=== PATIENT | female | born 1935 ===

== ENCOUNTER 2017-08-27 07:16 | Day surgery (SDC) | payer MEDICARE ==
[2017-08-25 13:34] VITALS: BMI 25.2
[2017-08-27 07:56] LABS: BASO # 0.08 K/mm3 (0.0-2.0); BASO % 0.5 % (0.0-3.0); EOS # 0.4 (0.0-0.7); EOS % 2.9 % (1.5-5.0); GRAN # 10.47 (1.4-6.5); GRAN % 69.7 % (50.0-68.0); HEMOGLOBIN 13.8 g/dL (12.0-16.0); LYMPH # 2.9 (1.2-3.4); LYMPH % 19.5 % (22.0-35.0); MEAN CELL VOLUME 90.1 fl (80.0-105.0); MEAN CORPUSCULAR HEMOGLOBIN 30.3 pg (25.0-35.0); MEAN CORPUSCULAR HGB CONC 33.6 g/dl (31.0-37.0); MEAN PLATELET VOLUME 9.8 fl (7.0-11.0); MONO # 1.1 (0.1-0.6); MONO % 7.4 % (1.0-6.0); RBC 4.56 10^6/uL (3.5-6.1); RED CELL DISTRIBUTION WIDTH 13.4 % (11.5-14.5)
[2017-08-27 08:09] LABS: BLOOD UREA NITROGEN 20 mg/dL (7-21); CALCIUM 9.5 mg/dL (8.4-10.5); GFR AFRICAN-AMERICAN > 60; GFR NON-AFRICAN AMERICAN > 60; HDL CHOLESTEROL 59 mg/dL (29-60)
[2017-08-27 08:19] LABS: LDL CHOLESTEROL 91 mg/dL (0-129)
[2017-08-27 08:22] LABS: INR 1.11 (0.93-1.08); PARTIAL THROMBOPLASTIN TIME 25.3 Seconds (25.1-36.5); PROTHROMBIN TIME 12.8 SECONDS (9.4-12.5)
[2017-08-27] MEDS ORDERED: Lidocaine 2% Inj (20ml) ONE (08:52)
[2017-08-27] MEDS ORDERED: Midazolam 2 MG/2 ML VIAL ONE ×2 (08:53→09:09)
[2017-08-27] MEDS ORDERED: Iodixanol 320 MG/ML 200 ML BOTTLE IV ONE (08:53)
--- NOTE | 2017-08-27 09:38 | CARD ---
APPROVED REPORT EKG Measurement Heart [id number] GA 144P58 [id number] <Conclusion> Normal sinus rhythm Right bundle branch block Abnormal ECG
[2017-08-27] MEDS ORDERED: Eptifibatide 20 mg/10mL Inj IVP ONE (09:46)
[2017-08-27] MEDS ORDERED: Sodium Chloride 0.9% 1,000 ML IV SCH (10:30)
--- NOTE | 2017-08-27 11:18 | CARDCATH ---
PROCEDURE DATE: 08/27/2017 HISTORY: The patient is an 81-year-old woman who presents with chest pain. A stress test revealed ischemic areas. Because of this, a cardiac catheterization was recommended. The patient suffers from hypertension and hypercholesterolemia. She has been on chronic medications for recurrent chest pain. PROCEDURE: Left heart catheterization with coronary arteriography and left ventriculogram followed by PTCA and stent of the circumflex artery. The right femoral artery was cannulated with 6-Lib[place] sheath. There were no complications. I performed moderate sedation which included the presence of an independent trained observer that assisted in monitoring the patient's level of consciousness and physiologic status. After administration of Versed and fentanyl, my intra service time was 30 minutes. The findings on catheterization revealed right dominant circulation. The RCA revealed intimal irregularities without significant stenoses. The left main artery was unremarkable. The circumflex artery revealed an eccentric 80% stenoses in the mid portion. The LAD and diagonal vessels are free of significant disease. LV function was normal with an EF of 60%. The patient was started on intravenous Angiomax and gait and given two boluses of IV Integrilin. Under fluoroscopic guide, the guiding catheter was placed in the ostium of the left main artery. An 0.014 ATW wire was used to cross the critical lesion, a 3.5 x 8 mm drug-eluting stent was placed and deployed in the critical lesion at 14 atmospheres of pressure. Repeat coronary arteriography revealed a narrowing just distal to the stent, a second 8 mm x 3.5 drug-eluting stent was placed and deployed just distal to the first stent at 14 atmospheres of pressure. Repeat coronary arteriography revealed an excellent result with no residual stenosis and MANOJ III flow, 200 mcg are given in between the two stents without change in the anatomy. Repeat coronary arteriography revealed an excellent result with no residual stenosis and MANOJ III flow. The patient tolerated the procedure well. Angio-Seal was used to close the femoral artery site. In summary, the procedure was successful PTCA and stent of an 80% eccentric circumflex artery stenosis. Cardiac catheterization revealed single-vessel CAD with normal LV function. Given these findings, the patient will need to remain on Plavix for a year, aspirin indefinitely and undergo a strict cardiac risk reduction program. Clement Aguilar MD [facility] # [id number]
--- NOTE | 2017-08-27 12:29 | CARD ---
APPROVED REPORT EKG Measurement Heart [id number] MO 162P70 [id number] <Conclusion> Normal sinus rhythm Right bundle branch block Abnormal ECG
--- NOTE | 2017-08-27 15:43 | HP ---
STORY OF PRESENT ILLNESS: I am seeing her for Dr. Aguilar, called me to see her. He just finished a cardiac cath and stent placement. She is an 81-year-old female with past medical history of chest pain. She had a stress test which showed ischemic areas. She had a cardiac cath and stent placement. PAST MEDICAL HISTORY: Hypertension, high cholesterol, recurrent chest pain. She had a left heart catheterization with coronary arteriography and left ventriculogram, followed by PTCA and stent of the circumflex artery. Also, she is comfortable at this time, resting comfortably in bed. SOCIAL HISTORY: No smoking. No drinking. No drugs. ALLERGIES: BERRIES AND VITAMIN C. REVIEW OF SYSTEMS: She has chest pain, but no vision or hearing changes. No shortness of breath. No abdominal pain. No nausea,vomiting, constipation, diarrhea. No skin issues. No anxiety. No numbness or tingling. PHYSICAL EXAMINATION: VITAL SIGNS: She has a 97.3 temp, 95 down to 57 pulse, 147/61 blood pressure, 21 respiratory rate, had 98% O2 sat on room air. HEENT: Head: Atraumatic, normocephalic. Extraocular muscles intact. Throat is moist. NECK: Supple. HEART: Regular rate. LUNGS: Decreased breath sounds, but clear to auscultation. ABDOMEN: Soft, nontender. Positive bowel sounds. Mildly obese. EXTREMITIES: No edema. She is to lay flat right now. SKIN: It is hard to see all those skin, but what I can tell no rashes or ulcers. PSYCHIATRIC: Alert and oriented x3. LABORATORY DATA: She has 15,000 white count, 13.8 hemoglobin, 41.1 hematocrit with 300 platelets. INR is 1.11. Sodium 143, potassium 4.2, BUN 20, creatinine 0.8, GFR is greater than 60, sugar is 103, calcium is 9.5, triglyceride is 112, cholesterol is 139, HDL 59. IMPRESSION AND PLAN: She is going to be on Ecotrin, Lipitor, Plavix, IV fluids, Synthroid, Tylenol. We will check labs in the morning. Hoping the white count subsides. We will address that tomorrow morning. It could be stress related. History of chest pain, coronary artery disease, cardiac cath. She has a history of hypothyroid, high cholesterol and coronary artery disease. Mehrdad Figueroa DO [facility] # [id number]
[2017-08-28 05:47] VITALS: BP 123/56; RESP 18; TEMP 98.4; O2SAT 97
[2017-08-28 07:13] LABS: BASO # 0.06 K/mm3 (0.0-2.0); BASO % 0.5 % (0.0-3.0); EOS # 0.5 (0.0-0.7); EOS % 4.2 % (1.5-5.0); GRAN # 7.21 (1.4-6.5); LYMPH # 2.4 (1.2-3.4); LYMPH % 22.2 % (22.0-35.0); MEAN CELL VOLUME 89.1 fl (80.0-105.0); MEAN CORPUSCULAR HEMOGLOBIN 29.6 pg (25.0-35.0); MEAN CORPUSCULAR HGB CONC 33.2 g/dl (31.0-37.0); MEAN PLATELET VOLUME 9.9 fl (7.0-11.0); MONO # 0.8 (0.1-0.6); MONO % 7.1 % (1.0-6.0); RBC 4.05 10^6/uL (3.5-6.1); RED CELL DISTRIBUTION WIDTH 13.3 % (11.5-14.5); WHITE BLOOD COUNT 10.9 10^3/ul (4.5-11.0)
[2017-08-28 07:32] LABS: ALB/GLOB RATIO 1.2 (1.1-1.8); ALBUMIN 3.6 g/dL (3.0-4.8); ALT/SGPT 29 U/L (7-56); AST/SGOT 36 U/L (14-36); BLOOD UREA NITROGEN 15 mg/dL (7-21); CALCIUM 8.7 mg/dL (8.4-10.5); GFR AFRICAN-AMERICAN > 60; GFR NON-AFRICAN AMERICAN > 60
--- NOTE | 2017-08-28 09:00 | PN ---
DATE: 08/28/2017 SUBJECTIVE: The patient is without shortness of breath, without chest pain. OBJECTIVE: VITAL SIGNS: Blood pressure 123/56, heart rate is in the 60s. NECK: Negative JVD. LUNGS: Without rales. HEART: Reveal S1, S2. EXTREMITIES: Without edema. The right groin site is without hematoma. Mild ecchymosis noted. DATA: Hemoglobin is stable. BUN and creatinine unremarkable. IMPRESSION: 1. Stable post percutaneous transluminal coronary angioplasty and stent of the circumflex artery with a drug-eluting stent. 2. Coronary artery disease. 3. Hypertension. 4. Hypercholesterolemia. Given these findings, the patient is stable for discharge. Followup instructions have been given to the patient in detail. The patient can be discharged today. Clement Aguilar MD
--- NOTE | 2017-08-28 09:11 | CARD ---
APPROVED REPORT EKG Measurement Heart [id number] MA 140P62 [id number] <Conclusion> Sinus bradycardia Right bundle branch block Abnormal ECG -- APPROVED REPORT EKG Measurement Heart [id number] MA 140P62 [id number] <Conclusion> Sinus bradycardia Right bundle branch block Abnormal ECG
[2017-08-28] MEDS ORDERED: Levothyroxine 88 MCG TAB PO SCH (10:00)
[2017-08-28 11:11] VITALS: PULSE 69
--- NOTE | 2017-08-28 14:46 | DS ---
HISTORY: I saw Raven sitting out of bed to chair this morning. She is comfortable. She is status post cardiac cath with Dr. Clement Aguilar and stent placement this morning. She had no chest pain or shortness of breath. No abdominal pain. She is walking well, but legs are not swollen. She is in good spirits. She is on Ultram, sulindac, Protonix, Synthroid, dicyclomine, Lipitor, Ecotrin and valsartan-hydrochlorothiazide. She ate breakfast well. She is in good spirits. PHYSICAL EXAMINATION: VITAL SIGNS: She has 98.4 temperature, 66 pulse, 122/56 blood pressure, 18 respiratory rate, 97% oxygen sat on room air. HEENT: Head is atraumatic, normocephalic. HEART: Regular rate. LUNGS: Clear to auscultation. ABDOMEN: Soft, obese, nontender. EXTREMITIES: No edema. LABORATORY DATA: She had lab tests today. She has 10.9 white count, so that white count that was elevated yesterday was little stress. Hemoglobin 12, hematocrit 36.1, platelets of 250. She has sodium 140, potassium 3.7, BUN 15, creatinine 0.7, GFR was greater than 60, sugar is 92, calcium is 8.7, total bili is 0.7, AST is 36, ALT is 29. alkaline phosphatase 66, total protein is 6.5, albumin 3.6. She will follow up with Dr. Aguilar and her primary care doctor. She did well status post cardiac cath and stent placement for coronary artery disease, hypertension, hypothyroid, high cholesterol and hopefully, she will continue to improve. Mehrdad Figueroa DO
== END 2017-08-28 11:16 | disposition home or self-care (01) ==
LOC: CATH 07:16 → 2RSO 10:34 → CATH 08-28 11:16
PROVIDERS: ATTEND Internal Medicine Cardiovascular Disease
DX: I25.10 Atherosclerotic heart disease of native coronary artery without angina pectoris (principal); I10 Essential (primary) hypertension; E78.00 Pure hypercholesterolemia, unspecified; E03.9 Hypothyroidism, unspecified
CPT/HCPCS: 36415 ×2; 80048; 80053; 80061; 85025 ×2; 85027; 85610; 85730; 86850; 86900; 93005 ×2; 93458; 99152; 99153; C1760; C1769 ×2; C1874; C1887; C2629; C9600; J0583; J1327; J1644; J2250; J3010; J7030 ×2; Q9966